=== PATIENT | male | born 1935 | race Caucasian/White ===

== ENCOUNTER 2019-01-28 11:57 | Emergency (ER) | payer MEDICARE, BC ==
[2019-01-28 12:40] VITALS: BP 137/73
[2019-01-28] MEDS ORDERED: Ketorolac 30 MG/ML SDV IM ONE (13:03)
--- NOTE | 2019-01-28 13:11 | EDM.PDOC ---
ED HPI GENERAL MEDICAL PROBLEM - General Chief Complaint: Upper Extremity Injury/Pain Stated Complaint: FELL ON ELBO Time Seen by Provider: 01/28/19 12:59 Source of Information: Reports: Patient, RN Notes Reviewed History Limitations: Reports: No Limitations - History of Present Illness INITIAL COMMENTS - FREE TEXT/NARRATIVE: 83-year-old gentleman presents emergency department today with complaint of chest pain, he fell approximately 2 days ago he does have some significant lacerations with skin tears on his right arm and elbow he is complaining of right-sided chest pain. He states it does hurt when he takes a deep breath he's concerned about a rib fracture Right Elbow Pain Score (Numeric/FACES): 2 - Related Data Allergies Allergy/AdvReac Type Severity Reaction Status Date / Time No Known Allergies Allergy Verified 01/28/19 12:40 Home Meds: Home Meds Albuterol [IJD: Albuterol HFA] 1 puff IH ASDIRECTED 02/05/16 [History] Calcium Carbonate [Calcium] 600 mg PO DAILY 02/05/16 [History] Folic Acid 1 mg PO DAILY 02/05/16 [History] Omeprazole Magnesium [Prilosec] 20 mg PO DAILY 02/05/16 [History] Prednisone [IJD: Prednisone] 10 mg PO DAILY 02/05/16 [History] Simvastatin [Zocor] 20 mg PO DAILY 02/05/16 [History] Apixaban [Eliquis] 5 mg PO BID 01/28/19 [History] Azithromycin [Zithromax] 250 mg PO DAILY #6 tab 01/28/19 [Rx] Fluticasone/Salmeterol [Advair 500-50] 1 puff INH BID 01/28/19 [History] Furosemide [Lasix] 20 mg PO DAILY 01/28/19 [History] Lisinopril [Zestril] 2.5 mg PO DAILY 01/28/19 [History] Metoprolol Succinate [Toprol XL 100mg] 100 mg PO DAILY 01/28/19 [History] Metoprolol Succinate [Toprol XL] 25 mg PO DAILY 01/28/19 [History] Sulfamethoxazole/Trimethoprim [Bactrim 400-80 MG] 1 each PO DAILY 01/28/19 [ History] Past Medical History HEENT History: Reports: Cataract, Other (See Below) Other HEENT History: retinal vessel plugged Cardiovascular History: Reports: Bypass, CAD, Heart Failure, High Cholesterol, Hypertension, NH, Other (See Below) Other Cardiovascular History: [id number] Respiratory History: Reports: COPD Gastrointestinal History: Reports: Cholelithiasis, GERD Genitourinary History: Reports: BPH Musculoskeletal History: Reports: Arthritis, Fracture, Osteoarthritis, RA Neurological History: Reports: CVA Oncologic (Cancer) History: Reports: Renal Other Oncologic History: kidney hx R kidney removed - Past Surgical History HEENT Surgical History: Reports: Cataract Surgery Cardiovascular Surgical History: Reports: Coronary Artery Bypass GI Surgical History: Reports: Cholecystectomy Male Surgical History: Reports: Nephrectomy Other Male Surgeries/Procedures: right - cancer Social & Family History - Tobacco Use Smoking Status *Q: Former Smoker Used Tobacco, but Quit: Yes Month/Year Tobacco Last Used: Sep 26 1975 - Caffeine Use Caffeine Use: Reports: Coffee - Recreational Drug Use Recreational Drug Use: No Review of Systems - Review of Systems Review Of Systems: See Below Cardiovascular: Reports: Chest Pain Skin: Reports: Wound ED EXAM, GENERAL - Physical Exam Exam: See Below Free Text/Narrative:: Multiple skin tears appreciated on the right arm in various stages of healing there is no tenderness to the elbow no tenderness to the wrist no tenderness to the shoulder Exam Limited By: No Limitations General Appearance: Alert, WD/WN, No Apparent Distress Respiratory/Chest: No Respiratory Distress, Lungs Clear, Normal Breath Sounds, No Accessory Muscle Use, Other (tender to palpation mid axillary line approximately T4 region) Cardiovascular: Regular Rate, Rhythm, No Murmur Course - Vital Signs Last Recorded V/S: Last Vital Signs Temp 98.2 F 01/28/19 11:58 Pulse 80 01/28/19 11:58 Resp 16 01/28/19 11:58 BP 137/73 01/28/19 11:58 Pulse Ox 95 01/28/19 11:58 - Orders/Labs/Meds Meds: Medications Discontinued Medications Generic Name Dose Route Start Last Admin Trade Name Ericq PRN Reason Stop Dose Admin Ketorolac Tromethamine 30 mg 01/28/19 13:03 01/28/19 13:34 Toradol IM 01/28/19 13:04 Not Given ONETIME ONE Departure - Departure Time of Disposition: 14:21 Disposition: Home, Self-Care 01 Condition: Fair Clinical Impression: Chest wall pain - Discharge Information Prescriptions: Azithromycin [Zithromax] 250 mg PO DAILY #6 tab Referrals: PCP,None [Primary Care Provider] - Forms: ED Department Discharge Additional Instructions: Take full course of antibiotics, Please followup with your primary care provider in 3-5 days if not better, please call return to the emergency department with worsening of symptoms. - Assessment/Plan Plan: Assessment Acuity = acute Site and laterality = chest wall pain Etiology = secondary to fall Manifestations = possible pneumonia development Location of injury = Home Lab values = chest x-ray shows no acute fracture however there is concern for early development of pneumonia per radiology Plan I did review x-ray results with him and because of potential for pneumonia from recent chest trauma elected to treat him with azithromycin he has taken this medication in the past without difficulty follow-up with his primary care 3-5 days if no improvement medications faxed to [facility] This note was dictated using [employer] voice recognition software please call with any questions on syntax or grammar.
--- NOTE | 2019-01-28 14:17 | CRLCR ---
INDICATION: Fall. COMPARISON: None. FINDINGS/IMPRESSION: Mild infiltrate in the right upper lobe along the minor fissure, likely in the anterior segment. Mild bilateral lower lobe infiltrates are also present. These could represent areas of pneumonia. No pleural effusions. Upper normal heart size. Status post median sternotomy. No acute fracture identified. Dictated by Kyler Barajas MD @ 01/28/2019 2:14:25 PM Dictated by: Kyler Barajas MD @ 01/28/2019 14:14:50 (Electronically Signed)
== END 2019-01-28 14:30 | disposition home or self-care (01) ==
LOC: JP.ED 11:57
DX: R07.89 Other chest pain (principal); I11.0 Hypertensive heart disease with heart failure; I50.9 Heart failure, unspecified; E78.00 Pure hypercholesterolemia, unspecified; J44.9 Chronic obstructive pulmonary disease, unspecified; Z86.73 Personal history of transient ischemic attack (TIA), and cerebral infarction without residual deficits; Z79.899 Other long term (current) drug therapy
CPT/HCPCS: 71046; 99284-25